=== PATIENT | female | born 1955 | race Caucasian/White ===

== ENCOUNTER 2022-08-23 13:02 | Emergency (ER) | payer MEDICARE, MEDICAID, SELFPAY ==
--- NOTE | ~2022-08-23 | XR_ITS ---
EXAMINATION: XR wrist RT min 3V DATE: 08/23/2022 13:27 INDICATION: Right wrist injury and burning pain. TECHNIQUE: 4 views of right wrist were obtained. COMPARISON: Right hand radiographs 12/12/2015 FINDINGS: Bone alignment is normal. No fracture. There is mild osteoarthritis of first carpometacarpa l joint. IMPRESSION: 1. Mild osteoarthritis of first carpometacarpal joint. Reviewed, dictated and finalized at location A.
[2022-08-23 13:06] VITALS: BP 140/82; PULSE 89; RESP 16; TEMP 37; O2SAT 99
--- NOTE | 2022-08-23 13:58 | ED.GENADULT ---
HPI - General Adult General Chief complaint: Extremity Injury, Upper Stated complaint: right wrist/back pain Time Seen by Provider: 08/23/22 13:51 History of Present Illness HPI narrative: 67-year-old female presented the ED for evaluation of right wrist pain. Patient reports a few months ago [place]. Patient did not seek follow-up at this time. Patient states since that time she has had increased burning at the site of the wrist. Patient denies any weakness but states her strength is weakened by the pain. Patient states she has been wearing a volar brace during the day but is not wearing it at nighttime. Patient has not had follow-up with orthopedics or with her primary care physician. Patient presented to the ED today because she states that the burning pain was just too bad and she could not take it anymore. Related Data Allergies Allergy/AdvReac Type Severity Reaction Status Date / Time naproxen Allergy Unknown Rash Verified 08/23/22 13:08 hydrocodone [From [facility]] Allergy Palpitation Verified 08/23/22 13:08 s tramadol Allergy Nausea and Verified 08/23/22 13:08 Vomiting Review of Systems Review of Systems: All systems reviewed & are unremarkable except as noted in HPI and below PMFSH Past Medical History Medical History (Updated 08/23/22 @ 14:02 by Samuel Jefferson MD) Dysphagia Family History Family History (System 09/22/20 @ 16:26 by Edmundo Roberts) Father Family history of lung cancer, Onset Age: 71 Mother Family history of malignant neoplasm of ovary, Onset Age: 66 Exam Narrative: APPEARANCE: Well appearing, no pain, no distress, well-nourished. HEAD: normocephalic, atraumatic. EYES: PERRLA/EOMI, conjunctivae clear. NOSE: Normal no drainage NECK: Supple. No adenopathy, no masses. RESPIRATORY: Airway patent, respirations nonlabored. Clear to auscultation bilaterally, no rales, rhonchi, wheezing. CARDIOVASCULAR: Regular rate and rhythm without murmurs rubs or gallops. ABDOMINAL: Soft, nontender, nondistended, normal bowel sounds MUSCULOSKELETAL: Right hand is neurovascular intact but does have tenderness to palpation the carpal tunnel. Tenderness to light touch. NEURO: Alert. Cranial nerves II through XII intact. Good gait. Good coordination SKIN: Warm, dry. Normal Color Course Course Emergency Course: 59-year-old female presenting to the ED for persistent right wrist pain. X-rays were negative for acute fractures but did show some mild osteoarthritis. Patient will be provided a Medrol dose pack and was encouraged to wear her volar brace at nighttime. Patient will be provided follow-up with orthopedics. All questions and concerns were addressed and patient was well-appearing at time of discharge. Vital Signs Vital signs: Vital Signs Temperature 98.6 F 08/23/22 13:06 Pulse Rate 89 08/23/22 13:06 Respiratory Rate 16 08/23/22 13:06 Blood Pressure 140/82 08/23/22 13:06 Pulse Oximetry 99 08/23/22 13:06 Temperature 98.6 F 08/23/22 13:06 Pulse Rate 89 08/23/22 13:06 Respiratory Rate 16 08/23/22 13:06 Blood Pressure 140/82 08/23/22 13:06 Pulse Oximetry 99 08/23/22 13:06 Medical Decision Making Differential Diagnosis Differential Diagnosis: Hand contusion, wrist contusion, wrist fracture, carpal tunnel, wrist sprain Vital Signs Vital Signs: Vital Signs Temperature 98.6 F 08/23/22 13:06 Pulse Rate 89 08/23/22 13:06 Respiratory Rate 16 08/23/22 13:06 Blood Pressure 140/82 08/23/22 13:06 Pulse Oximetry 99 08/23/22 13:06 Temperature 98.6 F 08/23/22 13:06 Pulse Rate 89 08/23/22 13:06 Respiratory Rate 16 08/23/22 13:06 Blood Pressure 140/82 08/23/22 13:06 Pulse Oximetry 99 08/23/22 13:06 Imaging Data Radiologist's impression: Impressions Wrist X-Ray 08/23/22 13:47 IMPRESSION: 1. Mild osteoarthritis of first carpometacarpal join
== END 2022-08-23 14:09 | disposition home or self-care (01) ==
PROVIDERS: Emergency Provider Emergency Medicine; PCP Physician Assistant
DX: M25.531 Pain in right wrist (principal); M18.9 Osteoarthritis of first carpometacarpal joint, unspecified
CPT/HCPCS: 73110; 99283

== ENCOUNTER 2023-08-08 11:34 | Outpatient (CLI) | payer MEDICARE, MEDICAID, SELFPAY ==
--- NOTE | 2023-08-08 14:53 | P.PCNPFT_ITS ---
PFT Procedure Performed PFT Procedure Performed Spirometry with Pre/Post Bronchodilator Plethysmography (Lung Vol) Diffusing Cap (DLCO) Flow Vol Loop PFT Interpretation DOS: 08/08/2023 REQUESTING: RYAN Abrams REASON FOR TESTING: Dyspnea on exertion PULMONARY FUNCTION TESTS Results are reliable and reproducible. Repeatability of spirometry FEV1 maneuver pre and post bronchodilator is Grade A. Spirometry: The pre-bronchodilator FEV1 is 1.74 L, 88% predicted. The pre- bronchodilator FVC is 2.49 L, 102% predicted. The FEV1/FVC ratio is 70%. After bronchodilator, the FEV1 is 1.92 L, 98%, +11% increase. The FVC is 2.68 L, 110%, +8% increase. The FEV1/FVC ratio is 72% after bronchodilator. There is a response to bronchodilator noted in the small airways, the FEF 25-75% is 0.87 L, 41% predicted and after bronchodilator this value is 1.41 L, 67% predicted, a 62% increase. Lung volumes: The total lung capacity is 4.72 L, 112% predicted. The residual volume is 2.23 L, 133% predicted. The RV/TLC is 47%, elevated. Diffusion: DLCO is 15.2, 81%. The DLCO/VA is 4.01, 112%. Flow volume loop: The flow volume loop is unremarkable. IMPRESSION: This study shows a mild obstructive ventilatory impairment without significant response to bronchodilator, mild air trapping, and normal diffusion. There is a significant increase in the small airways flows which may be consistent with a small airways pattern, 62% increase after bronchodilator. Lack of response to bronchodilator in the FEV1 and FVC should not preclude use if clinically indicated. No prior studies for comparison. Lori Bland MD
== END 2023-08-08 11:35 | disposition home or self-care (01) ==
LOC: CHSCARD 11:39
PROVIDERS: PCP Physician Assistant; Visit Provider Nurse Practitioner Family
DX: R06.09 Other forms of dyspnea (principal); R94.2 Abnormal results of pulmonary function studies
CPT/HCPCS: 94060; 94726; 94729

== ENCOUNTER 2023-08-11 11:38 | Outpatient (CLI) | payer MEDICARE, MEDICAID, SELFPAY ==
--- NOTE | ~2023-08-11 | CT_ITS ---
CT Scan of the Chest without Contrast: Clinical Indication: Lung cancer screening, nicotine dependence Technique: Contiguous sections were acquired throughout the chest without intravenous contrast. Dose reduction technique was used on this scan by utilizing automated exposure control and iterative recon struction technique. The dose-length product (DLP) was 67.59 mGy-cm. Findings: There is no evidence of any significant mediastinal, hilar or axillary lymphadenopathy. Ascending aor ta measures 5.1 cm in diameter. There is no evidence of pleural or pericardial effusion. The lungs are clear. No pulmonary nodules or infiltrates are noted. Images through the upper abdomen reveal no abnormalities. Impression: Lung RADS 1-S: Negative. 12 month follow-up screening CT advised. 5.1 cm ascending aortic aneurysm. Reviewed, dictated and finalized at location . Impression: Lung RADS 1-S: Negative. 12 month follow-up screening CT advised. 5.1 cm ascending aortic aneurysm.
--- NOTE | ~2023-08-11 | MM_ITS ---
EXAMINATION: MM screening maren BI w marylu HISTORY: Screening mammogram TECHNIQUE: Craniocaudal and mediolateral oblique 3-D tomosynthesis images were obtained and synthetic 2-D images were generated. CAD analysis was submitted and interpreted. COMPARISON: No prior mammogram is available for comparison at this institution. BREAST PARENCHYMAL COMPOSITION: The breasts are almost entirely fatty. FINDINGS: There is no evidence of suspicious mass, calcification, or architectural distortion to sugg est malignancy in either breast. There has been no suspicious interval change. IMPRESSION: 1. No mammographic evidence of malignancy. 2. Recommend routine screening mammography in one year. BI-RADS Category 1: Negative Reviewed, dictated and finalized at location B.
--- NOTE | ~2023-08-11 | XR_ITS ---
AP and lateral views of the right hip Clinical history: Pain Findings: No acute fracture or dislocation is seen. Osseous alignment is anatomic. Right hip joint is preserved. Soft tissues are unremarkable. Impression: No significant abnormality is seen. Reviewed, dictated and finalized at location M. Impression: No significant abnormality is seen.
--- NOTE | ~2023-08-11 | DEXA_ITS ---
? Bone Density Report? Name:? TANIYA PADILLA Patient ID:??? [id number] Age:? 68 Sex:? Female Ethnicity:? White Date of : 1955 Indication: postmenopausal; screening for osteoporosis; seizure disorder; Referring Provider: SHARON, OLEG Coe Study: Bone densitometry was performed. Exam Date: August 11, 2023 Accession number: [id number] Bone Density: Region? BMD??? T-score? Z-score?? Classification AP Spine(L1-L4)? 0.802?? -2.2? -0.2? Osteopenia Femoral Neck (Left)? 0.652?? -1.8? 0.0? Osteopenia Total Hip (Left)? 0.864?? -0.6? 0.8? Normal Femoral Neck (Right)? 0.621?? -2.1? -0.3? Osteopenia Total Hip (Right)? 0.855?? -0.7? 0.7? Normal Femoral Neck Mean? 0.637?? -1.9? -0.2? Osteopenia Total Hip Mean? 0.860?? -0.7? 0.8? Normal World Health Organization criteria for BMD impression classify patients as: Normal (T-score at or above -1.0), Osteopenia (T-score between -1.0 and -2.5), or Osteoporosis (T-score at or below -2.5). 10-year Fracture Risk(1): Major Osteoporotic Fracture? 12% Hip Fracture? 3.4% Reported Risk Factors: [place] (), Neck BMD=0.621, BMI=31.1, smoking (1) FRAX? Version 3.08. Fracture probability calculated for an untreated patient. Fracture probability may be lower if the patient has received treatment. Clinical Information Provided by Patient: Smokes Has the following medical conditions: Any Seizure Disorders Patient maximum height was 59 Menopause Age: 49 Drinks caffeinated beverages Onset of menses at age 11 Number of children 4 Impression: The patient has low bone mass, based on the Total Spine T-score. The patient has risk factors, including: smoking. Discussion: BONE DENSITY IS LOW AT ONE OR MORE SKELETAL SITES. This patient's lowest T-score is low at one or more skeletal sites.? It meets the World Health Organization's (WHO) criteria for ?low bone mass?? (T-score between -1.0 and -2.5).? The patient's 10-year risk of fracture as calculated by FRAX is less than the threshold where pharmacological therapy is recommended by the National Osteoporosis Foundation (NOF).? However, all treatment decisions require clinical judgment and consideration of individual patient factors, including patient preferences, comorbidities, previous drug use, risk factors not captured in the FRAX model (e.g., frailty, falls, vitamin D deficiency, increased bone turnover, interval significant decline in bone density) and possible under or overestimation of fracture risk by FRAX. The patient should follow a healthful lifestyle (good nutrition with adequate calcium and vitamin D, and appropriate weight-bearing exercise). Follow-Up: Consider repeating this study in 2 to 3 years to reassess this patient's status, or sooner if there is some new clinical indication. Reported by: Dr. Jaime Winston on 08/11/2023 2:42:00 PM. ЕЛЕНА
--- NOTE | ~2023-08-11 | XR_ITS ---
AP and lateral views of the left hip Clinical history: Pain Findings: No acute fracture or dislocation is seen. Osseous alignment is anatomic. Left hip joint is preserved. Soft tissues are unremarkable. Impression: No significant abnormality is seen. Reviewed, dictated and finalized at location M. Impression: No significant abnormality is seen.
== END 2023-08-11 11:39 | disposition home or self-care (01) ==
LOC: CHSIMG 11:47
PROVIDERS: PCP Physician Assistant; Visit Provider Nurse Practitioner Family
DX: Z12.31 Encounter for screening mammogram for malignant neoplasm of breast (principal); M25.551 Pain in right hip; Z78.0 Asymptomatic menopausal state; M85.89 Other specified disorders of bone density and structure, multiple sites; I71.21 Aneurysm of the ascending aorta, without rupture; Z12.2 Encounter for screening for malignant neoplasm of respiratory organs; Z87.891 Personal history of nicotine dependence
CPT/HCPCS: 71271; 73502; 77063; 77067; 77080

== ENCOUNTER 2023-08-24 14:34 | Outpatient (CLI) | payer MEDICARE, MEDICAID, SELFPAY ==
--- NOTE | 2023-08-24 14:43 | ECHO_ITS ---
Patient Info Name: Lakshmi Duran Age: 68 years : 1955 Gender: Female Ht: 59 in Wt: 154 lbs BSA: 1.73 m2 HR: 79 bpm BP: 136 / 80 mmHg Technical Quality: Good Exam Date: 08/24/2023 2:36 PM Exam Location: Echo Lab Patient Status: Outpatient Admit Date: 08/24/2023 Staff Ordering Physician: GerryIbis PA-C Sorority Supervisor: Toby Ayala RDCS Attending Provider: GerryIbis PA-C Exam Type: CA echo doppler color flow Study Info Indications - dyspnea on extertion Complete two-dimensional, color flow and Doppler transthoracic echocardiogram is performed. Summary 1. Complete two-dimensional, color flow and Doppler transthoracic echocardiogram is performed. 2. Left ventricular chamber dimension is normal. 3. Left ventricular systolic function is normal, estimated at 60-65%. 4. The left ventricular diastolic function is grade I diastolic dysfunction. 5. E/e' 11 is mildly elevated. 6. There is trace aortic valve regurgitation. 7. There is trace tricuspid valve regurgitation. 8. No pulmonary hypertension, estimated pulmonary arterial systolic pressure is 29 mmHg. Left Ventricle E/e' 11 is mildly elevated. Left ventricular chamber dimension is normal. Left ventricular systolic function is normal, estimated at 60-65%. The left ventricular diastolic function is grade I diastolic dysfunction. Right Ventricle Right ventricular systolic function is normal and with normal TAPSE 1.8 cm. Right ventricular chamber dimension is normal. Left Atria Left atrial chamber dimension is normal. Right Atria Right atrial chamber dimension is normal. Aortic Valve The aortic valve is trileaflet. There is no aortic valve stenosis. There is trace aortic valve regurgitation. Pulmonic Valve There is no pulmonic regurgitation. Mitral Valve There is no mitral valve stenosis. There is no mitral valve regurgitation. Tricuspid Valve There is trace tricuspid valve regurgitation. No pulmonary hypertension, estimated pulmonary arterial systolic pressure is 29 mmHg. Pericardium/Pleural There is no pericardial effusion. Inferior Vena Cava Normal inferior vena cava with >50% collapse upon inspiration consistent with normal right atrial pressure, 5 mmHg. Aorta The aortic root size at the sinus of Valsalva is normal. Left Ventricular Outflow Tract Name Value Normal LVOT 2D LVOT Diameter 2.0 cm LVOT Doppler LVOT Peak Velocity 105 cm/s LVOT Peak Gradient 4 mmHg LVOT Mean Gradient 2 mmHg LVOT VTI 19 cm LVOT VTI/AV VTI Ratio 0.8 LVOT Stroke Volume 63 ml Pulmonic Valve Name Value Normal PV Doppler PV Peak Velocity 77 cm/s PV Peak Gradient 2 mmHg Mitral Valve Name
== END 2023-08-24 14:35 | disposition home or self-care (01) ==
LOC: CHSIMG 14:38
PROVIDERS: PCP Physician Assistant; Visit Provider Physician Assistant
DX: R06.09 Other forms of dyspnea (principal)
CPT/HCPCS: 93306

== ENCOUNTER 2023-08-26 09:47 | Outpatient (CLI) | payer MEDICARE, MEDICAID, SELFPAY ==
--- NOTE | ~2023-08-26 | MR_ITS ---
MRI of the brain Clinical History: Memory impairment Technique: Axial and sagittal T1-weighted images were acquired. These were followed by axial T2-weigh david, diffusion weighted, gradient, and FLAIR images. Findings: There is no acute infarct, intracranial hemorrhage or mass lesion. There are mild chronic w hilary matter changes in periventricular white matter bilaterally. Ventricles and subarachnoid spaces are unremarkable. Orbits are unremarkable. Paranasal sinuses and m astoid air cells are essentially clear. Major intracranial flow voids are grossly intact. Sagittal midline structures are intact. IMPRESSION: No acute infarct, intracranial hemorrhage, or mass lesion. Mild chronic microvascular ischemic changes. Reviewed, dictated and finalized at location M.
== END 2023-08-26 09:48 | disposition home or self-care (01) ==
LOC: CHSIMG 09:49
PROVIDERS: PCP Nurse Practitioner Family; Visit Provider Nurse Practitioner Family
DX: R41.3 Other amnesia (principal)
CPT/HCPCS: 70551